=== PATIENT | female | born 1990 | race Caucasian/White ===

== ENCOUNTER → 2020-02-02 | Outpatient (CLI) | payer MEDICAID, OTHER ==
[~2020-02-02] MED LIST: SINCALIDE (KINEVAC) 5 MCG ONE
== END | disposition home or self-care (01) ==
LOC: RAD 10:45
PROVIDERS: ATTEND Family Medicine
DX: K82.8 Other specified diseases of gallbladder (principal)
CPT/HCPCS: 78227; A9537; J2805

== ENCOUNTER → 2020-03-16 | Outpatient (CLI) | payer OTHER ==
[~2020-03-16] MED LIST changes: +BUPR300T49 PO; +HYDR-826 PO; -SINCALIDE (KINEVAC) 5 MCG ONE; +biotin PO
== END | disposition home or self-care (01) ==
LOC: STAR 16:50
PROVIDERS: ATTEND Thoracic Surgery (Cardiothoracic Vascular Surgery)
DX: Z01.812 Encounter for preprocedural laboratory examination (principal); Z20.828 Contact with and (suspected) exposure to other viral communicable diseases
CPT/HCPCS: 36415; 87635

== ENCOUNTER 2020-03-21 10:58 | Day surgery (SDC) | payer OTHER ==
[~2020-03-21] VITALS: Ht 157.5 cm; Wt 77.1 kg
[~2020-03-21 10:58] MED LIST changes: +BUPIVACAINE/PF 0.5% ONE; +EPINEPHRINE 1 MG/ML, 1ML ONE
[2020-03-21] MEDS ORDERED: LACTATED RINGERS 1,000 ML IV SCH ×2 (11:38→14:30)
[2020-03-21 11:39] VITALS: BP 118/81
[2020-03-21] MEDS ORDERED: SCOPOLAMINE 1MG PATCH TD STA (11:50)
[2020-03-21] MEDS ORDERED: ACETAMINOPHEN 500 MG TABLET PO ONE (12:00)
[2020-03-21] MEDS ORDERED: DIAZEPAM 5 MG TABLET PO ONE (12:00)
[2020-03-21] MEDS ORDERED: CHLORHEXIDINE 15 ML UDC MM ONE (12:00)
[2020-03-21 12:33] LABS: HCG UR SG 1.011 (1.003-1.030)
[2020-03-21] MEDS ORDERED: MIDAZOLAM 1 MG/ML, 2ML ONE (13:11)
[2020-03-21] MEDS ORDERED: FENTANYL PF 100 MCG/2ML ONE ×2 (13:12→15:14)
[2020-03-21] MEDS ORDERED: SUGAMMADEX 200 MG/2 ML IVPush ONE (13:48)
[2020-03-21] MEDS ORDERED: LIDOCAINE PF 2%, 5ML ONE (13:48)
[2020-03-21] MEDS ORDERED: ROCURONIUM 10 MG/ML,10ML ONE (13:48)
[2020-03-21] MEDS ORDERED: KETOROLAC 30 MG/1 ML ONE (13:48)
[2020-03-21] MEDS ORDERED: BUPIVACAINE/PF-EPI 0.5% 1:200K INFIL ONE (14:03)
[2020-03-21] MEDS ORDERED: ONDANSETRON 2MG/ML, 2ML ONE (14:12)
[2020-03-21] MEDS ORDERED: DEXAMETHASONE 4 MG/ML, 1ML ONE (14:12)
[2020-03-21] MEDS ORDERED: CEFAZOLIN 1,000 MG ONE (14:12)
[2020-03-21] MEDS ORDERED: NEOSTIGMINE 1 MG/ML, 10ML ONE (14:12)
[2020-03-21] MEDS ORDERED: GLYCOPYRROLATE 0.2MG/1ML, 5ML ONE (14:12)
[2020-03-21] MEDS ORDERED: PROPOFOL 10 MG/ML, 20ML ONE (14:12)
[2020-03-21] MEDS ORDERED: ONDANSETRON 2MG/ML, 2ML IVPush PRN (14:30)
[2020-03-21] MEDS ORDERED: HYDROcodone/APAP 5/325 TABLET PO PRN (14:30)
[2020-03-21] MEDS ORDERED: hydrALAzine 20 MG/ML, 1ML IV PRN (14:30)
[2020-03-21] MEDS ORDERED: OXYcodone 5 MG/5 ML ORAL.SOL UDC PO PRN (14:30)
[2020-03-21] MEDS ORDERED: HYDROmorphone 1 MG/ML, 1ML INJ IVPush PRN (14:30)
[2020-03-21] MEDS ORDERED: LORazepam 2 MG/ML, 1ML IVPush PRN (14:30)
[2020-03-21] MEDS ORDERED: ALBUTEROL SULFATE 2.5 MG/3 ML NPPB PRN (14:30)
[2020-03-21] MEDS ORDERED: MEPERIDINE/PF 25MG/0.5ML IVPush PRN (14:30)
[2020-03-21] MEDS ORDERED: PROMETHAZINE 25 MG/ML, 1ML IVPush PRN (14:30)
[2020-03-21] MEDS ORDERED: morphine SULFATE 10 MG/ML, 1ML IVPush PRN (14:30)
[2020-03-21] MEDS ORDERED: LABETALOL 5MG/ML, 20ML IV PRN (14:30)
[2020-03-21] MEDS ORDERED: ACETAMINOPHEN 325 MG TABLET PO PRN (14:30)
[2020-03-21] MEDS: FENTANYL PF 100 MCG/2ML IV PRN ×3 (14:46→15:17)
[2020-03-21] MEDS ORDERED: METHOCARBAMOL 1,000 MG in DEXTROSE 5% 100 ML IV ONE (15:00)
[2020-03-21] MEDS ORDERED: OXYcodone 5 MG/5 ML ORAL.SOL UDC ONE (15:14)
== END 2020-03-21 17:15 | disposition home or self-care (01) ==
LOC: OUT 10:58
PROVIDERS: ATTEND Thoracic Surgery (Cardiothoracic Vascular Surgery)
DX: K81.1 Chronic cholecystitis (principal); K82.8 Other specified diseases of gallbladder; J45.909 Unspecified asthma, uncomplicated; F32.9 Major depressive disorder, single episode, unspecified; E66.9 Obesity, unspecified; Z68.31 Body mass index [BMI] 31.0-31.9, adult; Z88.1 Allergy status to other antibiotic agents; Z79.899 Other long term (current) drug therapy; Z80.1 Family history of malignant neoplasm of trachea, bronchus and lung; Z80.8 Family history of malignant neoplasm of other organs or systems; Z82.49 Family history of ischemic heart disease and other diseases of the circulatory system
CPT/HCPCS: 47562; 81025; 88304; J0171; J0690; J1100; J1885; J2250; J2405; J2704; J2710; J2800; J3010